=== PATIENT | female | born 1965 | race Caucasian/White ===

== ENCOUNTER → 2016-04-20 | Outpatient (CLI) | payer BC ==
[~2016-04-20] MED LIST: CETI10TA84 PO; FLUT0.15 NAE; LEVO100T7 PO; MECL1TAB42 PO
--- NOTE | 2016-04-20 16:32 | MAMMOGRAPHY REPORT ---
BILATERAL DIGITAL SCREENING MAMMOGRAM TOMOSYNTHESIS WITH CAD: 04/20/2016 CLINICAL HISTORY: Routine screening. Patient has no complaints. TECHNIQUE: Bilateral breast tomosynthesis in addition to standard 2D mammography was performed. Cur rent study was also evaluated with a Computer Aided Detection (CAD) system. COMPARISON: Comparison is made to exams dated: 03/28/2015 mammogram, 03/25/2014 mammogram, 03/21/2013 mammogram, 03/13/2012 mammogram, and 03/09/2011 mammogram - [facility]. BREAST COMPOSITION: The tissue of both breasts is heterogeneously dense, which may obscure small ma sses. FINDINGS: The parenchymal pattern is unchanged. No suspicious mass, architectural distortion or clu ster of microcalcifications is seen. IMPRESSION: ACR BI-RADS CATEGORY 1: NEGATIVE There is no mammographic evidence of malignancy. A 1 year screening mammogram is recommended. The p atient will receive written notification of the results. Approximately 10% of breast cancers are not detected with mammography. A negative mammographic repor t should not delay biopsy if a clinically suggestive mass is present. Annita Roman M.D. ay/:04/20/2016 15:10:09 [employer] Supervisor: Coreen SHUKLA(Sita)(Ronnell), [facility] letter sent: Normal 1/2 BI-RADS Code: ACR BI-RADS Category 1: Negative
== END | disposition home or self-care (01) ==
LOC: C.MAMM 08:19
PROVIDERS: ATTEND Obstetrics & Gynecology
DX: Z12.31 Encounter for screening mammogram for malignant neoplasm of breast (principal)

== ENCOUNTER 2016-10-08 13:32 | Emergency (ER) | payer BC, OTHER ==
[~2016-10-08] VITALS: Ht 165.1 cm; Wt 70.3 kg
[2016-10-08 13:37] VITALS: TEMP 36.6; Ht 165.1 cm; Wt 70.3 kg
[2016-10-08 16:12] LABS: BASO % 0.7 %; BASO ABS # 0.03 K/uL (0-0.2); COMPLETE YES; EOS % 1.8 %; HEMATOCRIT 38.3 % (37-47); IG% 0.2 %; LYMPH % 35.2 %; LYMPH ABS # 1.54 K/uL (1.2-3.4); MEAN CELL VOLUME 91.4 fL (80-100); MEAN CORPUSCULAR HEMOGLOBIN 31.5 pg (25-34); MEAN CORPUSCULAR HGB CONC 34.5 g/dl (32-36); MEAN PLATELET VOLUME 9.1 fL (7.4-10.4); MONO % 6.4 %; NEUT % 55.7 %; PLATELET COUNT 295 K/uL (130-400); RED BLOOD COUNT 4.19 M/uL (4.2-5.4); WHITE BLOOD COUNT 4.37 K/uL (4.8-10.8)
[2016-10-08] MEDS ORDERED: OPTIRAY 320 IV PRN (16:15)
[2016-10-08] MEDS ORDERED: CETI10TA84 PO (16:21)
[2016-10-08] MEDS ORDERED: FLUT0.15 NAE (16:21)
[2016-10-08 16:32] LABS: BUN/CREATININE RATIO 20.7 (10-20); CALCIUM 9.4 mg/dl (8.5-10.1); CREATININE 0.75 mg/dl (0.60-1.20); POTASSIUM 3.7 mmol/L (3.5-5.1)
[2016-10-08 16:42] LABS: THYROID STIMULATING HORMONE 13.2 uIu/ml (0.300-4.500)
--- NOTE | 2016-10-08 17:19 | DIAGNOSTIC IMAGING REPORT ---
SOFT TISSUE NECK WITH CLINICAL HISTORY: sensations of something in throat and swelling TECHNIQUE: Transaxial acquisition with multi axial reformatted images COMPARISON STUDY: None FINDINGS: Major salivary glands are symmetric. No evidence for airway compromise. Glottic and subglottic regions are unremarkable. Larynx is within normal limits. No evidence for abnormal mass or collection. No significant cervical adenopathy. IMPRESSION: Negative study Electronically signed by: Ethan Duran M.D. 10/08/2016 5:18 PM Dictated Date/Time: 10/08/2016 5:16 PM
[2016-10-08 17:32] VITALS: BP 122/86; PULSE 69; O2SAT 97
[2016-10-08] MEDS ORDERED: GI COCKTAIL PO ONE (18:00)
[2016-10-08] MEDS ORDERED: ALUMINUM/MAGNESIUM/SIMETH (MAALOX MAX) 30 ML UDC ONE (18:02)
[2016-10-08] MEDS ORDERED: LIDOCAINE HCL 2% VISC SOLN 20 ML UDC ONE (18:02)
--- NOTE | 2016-10-08 23:28 | EMERGENCY ROOM VISIT NOTE ---
ED Visit Note First contact with patient: 15:21 Chief Complaint: Throat discomfort. History of Present Illness: Ms. Shine is a 50-year-old white female who ambulates into the ED complaining of anterior throat discomfort. Patient reports approximately 2 weeks ago without provocation she developed a sensation of a foreign body in her throat. She was not eating at the time and she no intensive choking. Since that time her discomfort has been constant. She was seen at an urgent care center and was told it could likely be postnasal drip from sinus congestion. She was then seen by an ENT specialist who also felt it could be from sinus congestion. She reports she has been making multiple attempts to clear her throat with swallowing and forced coughing. Today when forced coughing she felt like she started having increasing swelling of the left side of the throat just above the clavicle and lateral to the sternocleidomastoid muscle. She has not taken any medications for this discomfort or swelling prior to arrival at the hospital. She feels the swelling worsens when she attempts to swallow mouth secretions but not food. She denies any associated headache, dizziness, lightheadedness, voice changes, painful talking, drooling, difficulty swallowing, neck pain, chest pain, shortness of breath, abdominal pain, nausea, vomiting, decreased appetite, fevers, chills, sweats, recent trauma. Review of Systems: As noted above in history of present illness. All body systems were reviewed and found to be negative as noted above. Past Medical History: Seasonal allergies. Current Medications: Flonase allergy relief, Allergies to Medications: Patient denies. Social History: Patient is currently employed; she feels safe in her home environment; she admits to tobacco use. Physical Examination: Vital Signs: Date Time Temp Pulse Resp B/P (MAP) Pulse Ox O2 Delivery O2 Flow Rate FiO2 10/08/16 17:32 69 18 122/86 97 Room Air 10/08/16 13:37 36.6 91 18 152/103 94 Room Air GENERAL: 50-year-old female in mild distress due to symptoms, nontoxic-appearing , afebrile and hemodynamically stable. NEUROLOGICAL: Awake, alert and oriented to person, place and time. Answering questions appropriately and following commands. Normal gait. Good hand eye coordination. No focal motor sensory deficits. SKIN: Warm, dry and pink. No soft tissue eruptions or trauma noted. HEENT: Atraumatic and normocephalic. Sclera white and conjunctiva pink. No drainage from naris. Oral cavity moist and pink. Airway is patent. Uvula was midline and no abscesses are seen. Pharynx is nonerythematous or edematous. No tonsillar hypertrophy or exudates. Speech normal. No auditory rales or stridor. No lymphadenopathy. Trachea midline. No jugular venous distention. No carotid bruits. No tenderness with palpation of the thyroid. The thyroid feels smooth was not able to feel any nodularity. BACK: No tenderness over the bony spine. THORAX: Lungs sounds are clear to auscultation and equal bilaterally with symmetrical chest wall. No wheezing, rales or rhonchi. No crepitus, tenderness , subcutaneous air or deformities noted. ABDOMEN: Flat, soft and nontender. Positive bowel sounds in all quadrants. No guarding, rigidity or organomegaly. ED Course: Patient is assessed as noted above. Patient's medication list was reviewed. Laboratory Testing: Test 10/08/16 15:55 Range/Units White Blood Count 4.37 4.8-10.8 K/uL Red Blood Count 4.19 4.2-5.4 M/uL Hemoglobin 13.2 12.0-16.0 g/dL Hematocrit 38.3 37-47 % Mean Corpuscular Volume 91.4 80-100 fL Mean Corpuscular Hemoglobin 31.5 25-34 pg Mean Corpuscular Hemoglobin Concent 34.5 32-36 g/dl Platelet Count 295 130-400 K/uL Mean Platelet Volume 9.1 7.4-10.4 fL Neutrophils (%) (Auto) 55.7 % Lymphocytes (%) (Auto) 35.2 % Monocytes (%) (Auto) 6.4 % Eosinophils (%) (Auto) 1.8 % Basophils (%) (Auto) 0.7 % Neutrophils # (Auto) 2.43 1.4-6.5 K/uL Lymphocytes # (Auto) 1.54 1.2-3.4 K/uL Monocytes # (Auto) 0.28 0.11-0.59 K/uL Eosinophils # (Auto) 0.08 0-0.5 K/uL Basophils # (Auto) 0.03 0-0.2 K/uL RDW Standard Deviation 44.6 36.4-46.3 fL RDW Coefficient of Variation 13.4 11.5-14.5 % Immature Granulocyte % (Auto) 0.2 % Immature Granulocyte # (Auto) 0.01 0.00-0.02 K/uL Sodium Level 142 136-145 mmol/L Potassium Level 3.7 3.5-5.1 mmol/L Chloride Level 106 98-107 mmol/L Carbon Dioxide Level 28 21-32 mmol/L Anion Gap 8.0 3-11 mmol/L Blood Urea Nitrogen 16 7-18 mg/dl Creatinine 0.75 0.60-1.20 mg/dl Est Creatinine Clear Calc Drug Dose 86.3 ml/min Estimated GFR () 106.2 Estimated GFR (Non- 91.6 BUN/Creatinine Ratio 20.7 10-20 Random Glucose 85 70-99 mg/dl Calcium Level 9.4 8.5-10.1 mg/dl Thyroid Stimulating Hormone (TSH) 13.200 0.300-4.500 uIu/ml Free Thyroxine 0.86 0.80-1.60 ng/dl Free Triiodothyronine 2.49 2.30-4.20 pg/ml Contrast Soft Tissue Neck CT: Was reviewed by myself and read by the radiologist showing symmetrical cell very glands, no evidence of airway compromise, clonic and subglottic regions unremarkable, larynx within normal limits, no evidence of abnormal masses, collections or significant lymphadenopathy. Patient was given a GI cocktail by mouth for her symptoms. Patient was reassessed multiple times during her stay in the emergency department. Patient's case was reviewed with Dr. Yu; we agreed on diagnostic approach , treatment, disposition and plan. Patient was educated about today's findings and instructed on her treatment plan ; she verbalizes understanding and agreement with this plan. Clinical Impression: Throat discomfort. Hypothyroidism. Decision-Making: Initially my differential diagnosis I considered abscess, lymphadenopathy, thyroid nodule, esophageal reflux, and other causes. Disposition: Patient discharged home in stable condition; prior to departure she was reassessed and subjectively reported she was feeling slightly better. Plan: Patient was encouraged to continue her current medications as prescribed. Patient was encouraged to use [id number] Zantac and Maalox and follow packaging instructions for dosing. Patient was encouraged to contact her PCP and request follow-up care and treatment and referral to gastroenterology for possible EGD and/or endocrinology for new onset hypothyroidism. Patient was encouraged return the ED for worsening throat discomfort, difficulty swallowing, painful talking, drooling, fevers or any new/concerning symptoms.
== END 2016-10-08 18:12 | disposition home or self-care (01) ==
LOC: C.EDB 13:33 → C.EDA 18:12
DX: R07.0 Pain in throat (principal); E03.9 Hypothyroidism, unspecified; Z72.0 Tobacco use

== ENCOUNTER 2017-03-21 10:36 | Emergency (ER) | payer BC ==
[~2017-03-21] VITALS: Ht 165.1 cm; Wt 72.4 kg
[~2017-03-21 10:36] MED LIST changes: -LEVO100T7 PO; -MECL1TAB42 PO
[2017-03-21 10:40] VITALS: TEMP 36.6; Ht 165.1 cm; Wt 72.4 kg
[2017-03-21] MEDS ORDERED: SODIUM CHLORIDE 0.9% 1000ML 1,000 ML IV STA (11:04)
--- NOTE | 2017-03-21 11:14 | EMERGENCY ROOM VISIT NOTE ---
History Report prepared by Rachael: Mark Tenorio Under the Supervision of: Dr. Lee Dumont M.D. First contact with patient: 11:00 Chief Complaint: EYE ASSESSMENT Stated Complaint: HORIZONTAL SHAKING OF VISION History of Present Illness The patient is a 51 year old female who presents to the Emergency Room with complaints of a horizontal shaking of her vision that occurred this morning. She has a history of sinus problems, vertigo, and hypothyroid. Whenever she opened her eyes after sleep this morning, her vision shook back and forth in front of her. It lasted for about 5 minutes and then resolved on its own. She states that her symptoms were not present when she was up and walking around but were there when she was lying down. She is currently asymptomatic and denies any nausea, vomiting, numbness, weakness, or abnormal urinary symptoms. In May of this year, she experienced what she was told to be a episode of vertigo. At that time, she was off balance and unsteady on her feet. The episode this morning was completely different. Source of History: patient Onset: this morning Position: eye (bilateral) Symptom Intensity: moderate Quality: other (Horizontal shaking to her vision) Timing: resolved Modifying Factors (Worsening): rest (lying down) Modifying Factors (Relieving): movement Associated Symptoms: No nausea, No vomiting, No urinary symptoms, No weakness, No numbness Review of Systems See HPI for pertinent positives and negatives. A total of ten systems were reviewed and were otherwise negative. Past Medical & Surgical Medical Problems: (1) Hypothyroid (2) Vertigo Family History Cardiac dysrhythmia Social History Smoking Status: Current Every Day Smoker Smokeless Tobacco Use: No Drug Use: none Marital Status: single Housing Status: lives alone Occupation Status: employed Current/Historical Medications Scheduled Levothyroxine Sodium (Levothyroxine Sodium), 100 MCG PO DAILY Allergies Coded Allergies: No Known Allergies (Unverified , 03/21/17) Physical Exam Vital Signs Date Time Temp Pulse Resp B/P (MAP) Pulse Ox O2 Delivery O2 Flow Rate FiO2 03/21/17 14:53 79 20 129/87 99 03/21/17 13:10 73 16 136/86 100 Room Air 03/21/17 12:07 66 03/21/17 10:40 36.6 99 18 136/97 100 Room Air Right Eye Acuity: 20/25 Left Eye Acuity: 20/25 Physical Exam GENERAL: Awake, alert, well-appearing, in no distress HENT: Normocephalic, atraumatic. Oropharynx unremarkable. EYES: Normal conjunctiva. Sclera non-icteric. NECK: Supple. No nuchal rigidity. FROM. No JVD. RESPIRATORY: Clear to auscultation. CARDIAC: Regular rate, normal rhythm. Extremities warm and well perfused. Pulses equal. ABDOMEN: Soft, non-distended. No tenderness to palpation. No rebound or guarding. No masses. RECTAL: Deferred. MUSCULOSKELETAL: Chest examination reveals no tenderness. The back is symmetrical on inspection without obvious abnormality. There is no CVA tenderness to palpation. No joint edema. LOWER EXTREMITIES: Calves are equal size bilaterally and non-tender. No edema. No discoloration. NEURO: Normal sensorium. No sensory or motor deficits noted. SKIN: No rash or jaundice noted. Medical Decision & Procedures ER Provider Diagnostic Interpretation: Radiology results as stated below per my review and radiologist interpretation: CHEST ONE VIEW PORTABLE HISTORY: 51 years-old Female ABDOMINAL PAIN/GI acute generalized abdominal pain. COMPARISON: Chest radiograph 10/03/2015 TECHNIQUE: AP view of the chest FINDINGS: Cardiomediastinal and hilar silhouettes are within normal limits. There is no pneumothorax, pleural effusion, focal airspace consolidation or overt pulmonary edema. Bones of the chest are grossly intact. IMPRESSION: No acute cardiopulmonary process The above report was generated using voice recognition software. It may contain grammatical, syntax or spelling errors. Electronically signed by: Viral Mcguire M.D. 03/21/2017 11:34 AM Dictated Date/Time: 03/21/2017 11:33 AM Laboratory Results 03/21/17 11:20 Red Blood Count 4.25, Mean Corpuscular Volume 90.1, Mean Corpuscular Hemoglobin 31.1, Mean Corpuscular Hemoglobin Concent 34.5, Mean Platelet Volume 9.4, Neutrophils (%) (Auto) 70.0, Lymphocytes (%) (Auto) 23.2, Monocytes (%) (Auto) 5.2, Eosinophils (%) (Auto) 1.0, Basophils (%) (Auto) 0.6, Neutrophils # (Auto) 2.17, Lymphocytes # (Auto) 0.72, Monocytes # (Auto) 0.16, Eosinophils # (Auto) 0.03, Basophils # (Auto) 0.02 03/21/17 11:20 Test 03/21/17 10:40 03/21/17 11:20 Urine Color YELLOW Urine Appearance CLEAR (CLEAR) Urine pH 7.0 (4.5-7.5) Urine Specific Cass 1.007 (1.000-1.030) Urine Protein NEG (NEG) Urine Glucose (UA) NEG (NEG) Urine Ketones NEG (NEG) Urine Occult Blood NEG (NEG) Urine Nitrite NEG (NEG) Urine Bilirubin NEG (NEG) Urine Urobilinogen NEG (NEG) Urine Leukocyte Esterase TRACE (NEG) Urine WBC (Auto) 1-5 /hpf (0-5) Urine RBC (Auto) 0-4 /hpf (0-4) Urine Hyaline Casts (Auto) 0 /lpf (0-5) Urine Epithelial Cells (Auto) 5-10 /lpf (0-5) Urine Bacteria (Auto) NEG (NEG) White Blood Count 3.10 K/uL (4.8-10.8) Red Blood Count 4.25 M/uL (4.2-5.4) Hemoglobin 13.2 g/dL (12.0-16.0) Hematocrit 38.3 % (37-47) Mean Corpuscular Volume 90.1 fL (80-100) Mean Corpuscular Hemoglobin 31.1 pg (25-34) Mean Corpuscular Hemoglobin Concent 34.5 g/dl (32-36) Platelet Count 290 K/uL (130-400) Mean Platelet Volume 9.4 fL (7.4-10.4) Neutrophils (%) (Auto) 70.0 % Lymphocytes (%) (Auto) 23.2 % Monocytes (%) (Auto) 5.2 % Eosinophils (%) (Auto) 1.0 % Basophils (%) (Auto) 0.6 % Neutrophils # (Auto) 2.17 K/uL (1.4-6.5) Lymphocytes # (Auto) 0.72 K/uL (1.2-3.4) Monocytes # (Auto) 0.16 K/uL (0.11-0.59) Eosinophils # (Auto) 0.03 K/uL (0-0.5) Basophils # (Auto) 0.02 K/uL (0-0.2) RDW Standard Deviation 42.7 fL (36.4-46.3) RDW Coefficient of Variation 13.1 % (11.5-14.5) Immature Granulocyte % (Auto) 0.0 % Immature Granulocyte # (Auto) 0.00 K/uL (0.00-0.02) Anion Gap 9.0 mmol/L (3-11) Est Creatinine Clear Calc Drug Dose 92.7 ml/min Estimated GFR () 114.6 Estimated GFR (Non- 98.9 BUN/Creatinine Ratio 17.6 (10-20) Calcium Level 9.4 mg/dl (8.5-10.1) Thyroid Stimulating Hormone (TSH) 0.402 uIu/ml (0.300-4.500) Laboratory results reviewed by me Medications Administered Medications (Trade) Dose Ordered Sig/Owen Route Start Time Stop Time Status Last Admin Dose Admin Sodium Chloride 1,000 ml @ 999 mls/hr Q1H1M STAT IV 03/21/17 11:04 03/21/17 12:04 DC 03/21/17 11:04 999 MLS/HR ED Course 1100: The patient was evaluated in room C3. A complete history and physical exam was performed. 1428: I reevaluated the patient. Discussed results and discharge instructions: She verbalized understanding and agreement. The patient is ready for discharge. Medical Decision I reviewed the patient's past medical history, medications, and the nursing notes as described above. Differential diagnosis includes but is not limited to: vertigo, stroke, dehydration, and electrolyte abnormalities. The patient is a 51-year-old woman who presents emergency Department with brief episode of of feeling like the room was moving around her when lying in bed per history of present illness. On arrival the symptoms had resolved, the patient is well-appearing, in no acute distress, AFVSS. Neuro intact. Normal cerebellar function with [id number], alternating palms, [id number]. WBC 3 but labs otherwise unremarkable. Chest x-ray negative. She continued to feel asymptomatic throughout her ED observation. Given the patient's description of symptoms, that is most consistent with vertigo. However given complete resolution of symptoms unlikely be central etiology. Moreover the patient has been suffering from chronic sinusitis (likely viral c/w patient's mildly decreased WBC) and further supports a likely peripheral etiology. Findings and plan for follow-up reviewed with patient. Patient agreeable and d/c'd per discharge instructions. Medication Reconcilliation Current Medication List: was personally reviewed by me Blood Pressure Screening Patient's blood pressure: Elevated blood pressure Blood pressure disposition: Elevated BP felt to be situational Impression Primary Impression: Vertigo Scribe Attestation The scribe's documentation has been prepared under my direction and personally reviewed by me in its entirety. I confirm that the note above accurately reflects all work, treatment, procedures, and medical decision making performed by me. Departure Information Dispostion Home / Self-Care Referrals Alphonso Yañez M.D. (PCP) Forms HOME CARE DOCUMENTATION FORM, IMPORTANT VISIT INFORMATION, WORK / SCHOOL INSTRUCTIONS Patient Instructions ED Vertigo Unspecified, My [facility] Additional Instructions Please follow up with your primary care physician in the next 1-3 days for re- evaluation. You likely had an episode of vertigo. Otherwise, your exam, chest xray, and lab results did not show signs of an emergent condition at this time. Meclizine as needed for vertigo if returns. Ensure hydration. Return to the emergency department for worsening symptoms as described in the accompanying instructions.
[2017-03-21 11:36] LABS: URINE APPEARANCE CLEAR (CLEAR); URINE BILIRUBIN NEG (NEG); URINE COLOR YELLOW; URINE NITRITE NEG (NEG); URINE SPECIFIC GRAVITY 1.007 (1.000-1.030); UROBILINOGEN NEG (NEG); ZZUR CULT IF INDIC CLEAN CATCH NO
--- NOTE | 2017-03-21 11:36 | DIAGNOSTIC IMAGING REPORT ---
CHEST ONE VIEW PORTABLE HISTORY: 51 years-old Female ABDOMINAL PAIN/GI acute generalized abdominal pain. COMPARISON: Chest radiograph 10/03/2015 TECHNIQUE: AP view of the chest FINDINGS: Cardiomediastinal and hilar silhouettes are within normal limits. There is no pneumothorax, pleural effusion, focal airspace consolidation or overt pulmonary edema. Bones of the chest are grossly intact. IMPRESSION: No acute cardiopulmonary process The above report was generated using voice recognition software. It may contain grammatical, syntax or spelling errors. Electronically signed by: Viral Mcguire M.D. 03/21/2017 11:34 AM Dictated Date/Time: 03/21/2017 11:33 AM
[2017-03-21 11:37] LABS: MANUAL MICROSCOPIC REQUIRED? NO; REVIEW REQ? NO
[2017-03-21 11:57] LABS: BASO % 0.6 %; BASO ABS # 0.02 K/uL (0-0.2); COMPLETE YES; HEMATOCRIT 38.3 % (37-47); LYMPH % 23.2 %; LYMPH ABS # 0.72 K/uL (1.2-3.4); MEAN CELL VOLUME 90.1 fL (80-100); MEAN CORPUSCULAR HEMOGLOBIN 31.1 pg (25-34); MEAN CORPUSCULAR HGB CONC 34.5 g/dl (32-36); MEAN PLATELET VOLUME 9.4 fL (7.4-10.4); MONO % 5.2 %; PLATELET COUNT 290 K/uL (130-400); RED BLOOD COUNT 4.25 M/uL (4.2-5.4)
[2017-03-21 12:17] LABS: BUN/CREATININE RATIO 17.6 (10-20); CALCIUM 9.4 mg/dl (8.5-10.1); CREATININE 0.7 mg/dl (0.60-1.20); POTASSIUM 3.6 mmol/L (3.5-5.1)
[2017-03-21 12:27] LABS: THYROID STIMULATING HORMONE 0.402 uIu/ml (0.300-4.500)
[2017-03-21] MEDS ORDERED: MECL1TAB42 PO (14:23)
[2017-03-21] MEDS ORDERED: LEVO100T7 PO (14:33)
[2017-03-21 14:53] VITALS: BP 129/87; PULSE 79; O2SAT 99
== END 2017-03-21 14:50 | disposition home or self-care (01) ==
LOC: C.EDB 10:38 → C.EDC 14:50
DX: R42 Dizziness and giddiness (principal); E03.9 Hypothyroidism, unspecified; Z82.49 Family history of ischemic heart disease and other diseases of the circulatory system; F17.200 Nicotine dependence, unspecified, uncomplicated; R03.0 Elevated blood-pressure reading, without diagnosis of hypertension

== ENCOUNTER → 2017-04-22 | Outpatient (CLI) | payer OTHER ==
[~2017-04-22] MED LIST changes: -CETI10TA84 PO; -FLUT0.15 NAE; +LEVO100T7 PO
--- NOTE | 2017-04-22 14:36 | MAMMOGRAPHY REPORT ---
BILATERAL DIGITAL SCREENING MAMMOGRAM TOMOSYNTHESIS WITH CAD: 04/22/2017 CLINICAL HISTORY: Routine screening. TECHNIQUE: Breast tomosynthesis in addition to standard 2D mammography was performed. Current study was also evaluated with a Computer Aided Detection (CAD) system. COMPARISON: Comparison is made to exams dated: 04/20/2016 mammogram, 03/28/2015 mammogram, 03/25/2014 m ammogram, 03/21/2013 mammogram, 03/13/2012 mammogram, and 03/09/2011 mammogram - [facility]. BREAST COMPOSITION: The tissue of both breasts is heterogeneously dense, which may obscure small mas ses. FINDINGS: No suspicious masses, calcifications, or areas of architectural distortion are noted in ei ther breast. There has been no significant interval change compared to prior exams. IMPRESSION: ACR BI-RADS CATEGORY 1: NEGATIVE There is no mammographic evidence of malignancy. A 1 year screening mammogram is recommended. The pa tient will receive written notification of the results. Approximately 10% of breast cancers are not detected with mammography. A negative mammographic report should not delay biopsy if a clinically suggestive mass is present. Rizwana Wang M.D. /:04/22/2017 09:57:19 [employer] Hackler: Josh SHUKLA(Sita)(M), [facility] letter sent: Normal 1/2 BI-RADS Code: ACR BI-RADS Category 1: Negative
== END | disposition home or self-care (01) ==
LOC: C.MAMM 08:46
PROVIDERS: ATTEND Obstetrics & Gynecology
DX: Z12.31 Encounter for screening mammogram for malignant neoplasm of breast (principal)